=== PATIENT | female | born 1960 | race African-American/Black ===

== ENCOUNTER 2016-11-18 20:31 | Emergency (ER) | payer MEDICAID ==
[~2016-11-18] VITALS: Ht 162.6 cm; Wt 115.0 kg
[~2016-11-18 20:31] MED LIST: ACET9.6D PO; ASPI-1035 PO; DIPH25CA83 PO; HYDR-4135 PO; HYDR100T26 PO; LORA-250 PO; LOSA50TA20 PO; LOSA50TA3 PO; METO25TA6 PO; OMEP20CA10 PO
[2016-11-18] MEDS ORDERED: ACETAMINOPHEN 500MG TABLET PO ONE (23:00)
[2016-11-18 23:43] VITALS: BP 141/74
== END 2016-11-18 23:28 | disposition home or self-care (01) ==
LOC: ER 20:31
DX: T24.211A Burn of second degree of right thigh, initial encounter (principal); Z88.0 Allergy status to penicillin; Z88.6 Allergy status to analgesic agent; Z79.899 Other long term (current) drug therapy; Z79.82 Long term (current) use of aspirin; Z91.040 Latex allergy status
CPT/HCPCS: 99283; A4217

== ENCOUNTER 2023-01-14 14:32 | Emergency (ER) | payer MEDICAID ==
[~2023-01-14] VITALS: Ht 162.6 cm; Wt 116.0 kg
[~2023-01-14 14:32] MED LIST changes: -ASPI-1035 PO; +ASPI-1497 PO; +LOSA-413 PO; -LOSA50TA20 PO; -LOSA50TA3 PO; +LOSA50TA41 PO; -OMEP20CA10 PO; +OMEP20CA14 PO
[2023-01-14 15:13] LABS: CHLORIDE 102 mEq/L (98-107)
[2023-01-14 15:19] LABS: BASOPHILS % 0.1 % (0.0-2.0); EOSINOPHILS % 2.2 % (0.0-5.0); HEMATOCRIT. 42.4 % (36.0-48.0); HEMOGLOBIN. 13.9 g/dL (12.0-16.0); LYMPHOCYTES % 9.4 % (20.0-50.0); MEAN CORPUSCULAR HEMOGLOBIN 26.9 pg (28.0-32.0); MEAN PLATELET VOLUME 8.3 fl (7.4-10.4); MONOCYTES % 4.3 % (2.0-8.0); PLATELET 306 x1000/uL (130-400); RED BLOOD CELL COUNT 5.17 mill/uL (4.2-5.4); RED CELL DISTRIBUTION WIDTH 14.9 % (11.6-14.6)
[2023-01-14 16:07] LABS: CLARITY URINE CLEAR (CLEAR); COLOR URINE DARK YELLOW (YELLOW); KETONES URINE TRACE (NEGATIVE); LEUKOCYTE ESTERASE URINE 2+ (NEGATIVE); NITRITE URINE NEGATIVE (NEGATIVE); OCCULT BLOOD URINE NEGATIVE (NEGATIVE); PROTEIN URINE 1+ (NEGATIVE); SPECIFIC GRAVITY URINE 1.022 (1.005-1.030)
[2023-01-14] MEDS ORDERED: ONDANSETRON 4MG ODT PO STA (19:44)
[2023-01-14] MEDS ORDERED: VISCOUS LIDOCAINE 2% 15 ML UDC PO STA (19:44)
[2023-01-14] MEDS ORDERED: MAGNESIUM/ALUMINUM HYDROXIDE/SIMETHICONE 30ML UDC PO STA (19:44)
[2023-01-14] MEDS ORDERED: FAMOTIDINE 20MG TABLET PO ONE (19:45)
[2023-01-14] MEDS ORDERED: FAMOTIDINE 20MG TABLET PO NR (21:15)
[2023-01-14] MEDS ORDERED: ONDANSETRON 4MG ODT PO NR (21:15)
[2023-01-14] MEDS ORDERED: MAGNESIUM/ALUMINUM HYDROXIDE/SIMETHICONE 30ML UDC PO NR (21:15)
[2023-01-14] MEDS ORDERED: VISCOUS LIDOCAINE 2% 15 ML UDC PO NR (21:15)
[2023-01-14 21:48] VITALS: BP 141/87
[2023-01-14] MEDS ORDERED: FAMO-135 MT (22:02)
[2023-01-14] MEDS ORDERED: MAG355OR21 MT (22:02)
== END 2023-01-14 22:17 | disposition home or self-care (01) ==
LOC: ER 14:32
DX: R10.9 Unspecified abdominal pain (principal); R11.2 Nausea with vomiting, unspecified; R19.7 Diarrhea, unspecified; I10 Essential (primary) hypertension; E11.9 Type 2 diabetes mellitus without complications; K21.9 Gastro-esophageal reflux disease without esophagitis; Z90.710 Acquired absence of both cervix and uterus; Z88.0 Allergy status to penicillin; Z88.5 Allergy status to narcotic agent; Z91.040 Latex allergy status; Z86.73 Personal history of transient ischemic attack (TIA), and cerebral infarction without residual deficits; Z79.82 Long term (current) use of aspirin
CPT/HCPCS: 36415; 74176; 80053; 81003; 83690; 84484; 85025; 93005; 99284; Q0162